=== PATIENT | female | born 1995 | race Caucasian/White ===

== ENCOUNTER 2016-08-06 08:47 | Day surgery (SDC) | payer OTHER ==
[~2016-08-06] VITALS: Ht 154.9 cm; Wt 77.5 kg
[2016-08-06] VITALS (10 sets, daily range): BP systolic 92–114; BP diastolic 56–70; PULSE 67–87; TEMP 36.5–37; O2SAT 95–100; Ht 154.9 cm; Wt 77.5 kg
[~2016-08-06 08:47] MED LIST: MULT-506 PO
[2016-08-06] MEDS ORDERED: GLC/500 PO (09:08)
[2016-08-06] MEDS ORDERED: SERT1TAB71 PO (09:08)
--- NOTE | 2016-08-06 10:13 | Discharge Instructions ---
Discharge Instructions Procedure Procedure Date: Aug 06, 2016. Reason for visit: W/ Opening Pressure; Papilledema. Discharge Discharge Date: Aug 06, 2016. Discharge Diagnosis: s/p lumbar puncture Instructions Activity Recommendations: 1 Day-May resume regular activity, 48 Hours of decreased exertion Return to School/Work: no limitations Recommended Home Diet: No Limitations Provider Instructions: ACTIVITY RECOMMENDATIONS: * Rest today. * Resume regular activity in one day. MEDICATIONS: * May take Tylenol or Ibuprofen as needed for pain. DIET: * Resume previous diet. SPECIAL CARE INSTRUCTIONS: Call your doctor if: * Temperature above 101 degrees F. * Pain not relieved by pain medicine ordered. * Increased drainage or redness from incision. * Notify your doctor with any questions or concerns. Call your doctor or go to the nearest Emergency Department if you experience: * Increased chest pain or shortness of breath. FOLLOW UP VISIT: Follow-up with Referring Physician as scheduled. Allergies Coded Allergies: No Known Allergies (Unverified , 08/06/16) Prasad New Recommendations: Call your doctor if: * Temperature above 101 degrees * Pain not relieved by pain medicine ordered * There is increased drainage or redness from any incision * You have any unanswered questions or concerns. Your Doctors Instructions noted above were prepared by provider Cesario Carrion. Patient Signature Section: Patient Instructions Signature Page Cecilia Baltazar Patient (or Guardian) Signature/Date: I have read and understand the instructions given to me by my caregivers. Caregiver/RN/Doctor Signature/Date: The above-named patient and/or guardian has received patient instructions on this date. + Original Patient Signature Page (only) stays with chart. Please make copy for patient.
--- NOTE | 2016-08-06 10:17 | DIAGNOSTIC IMAGING REPORT ---
FLUOROSCOPICALLY GUIDED LUMBAR PUNCTURE CLINICAL HISTORY: Papilledema. PROCEDURE: The procedure, risks and benefits were discussed with the patient including the risk of spinal headache, bleeding and infection. The patient agreed to the procedure and informed written consent was obtained. The procedure was performed by Dr. Carrion following a timeout. The right L4-L5 interlaminar space was targeted. Skin overlying the space was prepped and draped in sterile fashion and local anesthesia was achieved with 1% lidocaine. Under intermittent fluoroscopic guidance, a 5 inch, 22-gauge spinal needle was directed into the thecal sac. There is immediate return of clear cerebrospinal fluid. Opening pressure was elevated at 40.2 cm of water. A total of 8 cc of clear CSF was collected in 4 vials and sent to laboratory as ordered. The needle was removed. The patient tolerated the procedure well. Fluoroscopy time was 0.3 minutes and 1 fluoroscopic image was obtained. IMPRESSION: 1. Fluoroscopically guided lumbar puncture with collection of 8 cc of clear cerebrospinal fluid. 2. Elevated opening pressure 40.2 cm of water. Electronically signed by: Cesario Carrion M.D. 08/06/2016 10:15 AM Dictated Date/Time: 08/06/2016 10:14 AM
[2016-08-06 10:47] LABS: CSF CHEMISTRY TUBE # 1
[2016-08-06 10:55] LABS: CSF TOTAL PROTEIN 47.3 mg/dl (15.0-45.0)
[2016-08-06 10:57] LABS: CSF APPEARANCE CLEAR; CSF COLOR COLORLESS; CSF XANTHOCHROMIC NO XANTHOCHROMIA
[2016-08-12 07:19] LABS: ALBUMIN 3.8 g/dL (3.7-5.1); IGG SERUM 1120 mg/dL (694-1618); LYME DNA PCR CSF OR SYNOVIAL Not detected (Not Detected); LYME DNA SOURCE CSF; LYME IGG CSF NO BANDS DETECTED; LYME IGM CSF NO BANDS DETECTED; MYELIN BASIC PROTEIN 663 <2.0 mcg/L (0.0-4.0)
== END 2016-08-06 13:59 | disposition home or self-care (01) ==
LOC: C.ACU 08:47
PROVIDERS: ATTEND Radiology Diagnostic Radiology
DX: H47.10 Unspecified papilledema (principal)

== ENCOUNTER → 2017-08-08 | Outpatient (CLI) | payer OTHER ==
[~2017-08-08] MED LIST changes: +GLC/500 PO; +SERT1TAB71 PO
[2017-08-08 15:14] LABS: BLOOD UREA NITROGEN 15 mg/dl (7-18); CALCIUM 9.3 mg/dl (8.5-10.1); CARBON DIOXIDE 25 mmol/L (21-32); CREATININE 0.65 mg/dl (0.60-1.20); GLUCOSE 85 mg/dl (70-99); POTASSIUM 3.8 mmol/L (3.5-5.1); SODIUM 141 mmol/L (136-145)
== END | disposition home or self-care (01) ==
LOC: C.LAB1850 13:57
PROVIDERS: ATTEND Psychiatry & Neurology Neurology
DX: H47.10 Unspecified papilledema (principal)